=== PATIENT | female | born 1985 | race Hispanic/Latino ===

== ENCOUNTER 2018-02-15 09:37 | Emergency (ER) | payer OTHER ==
[2018-02-15 09:46] VITALS: BP 106/68; PULSE 89; RESP 18; TEMP 98.4; O2SAT 100
[2018-02-15 10:58] LABS: BASO # 0.1 K/uL (0.0-0.2); BASO % 1.2 % (0.0-2.0); EOS # 0.1 K/uL (0.0-0.7); EOS % 1.1 % (0.0-4.0); HEMOGLOBIN 13.9 g/dL (12.0-16.0); LYMPH # 2.2 K/uL (1.0-4.3); LYMPH % 34.4 % (20.0-40.0); MEAN CELL VOLUME 88.7 fl (81.0-99.0); MEAN CORPUSCULAR HEMOGLOBIN 30.2 pg (27.0-31.0); MEAN CORPUSCULAR HGB CONC 34.1 g/dL (33.0-37.0); MEAN PLATELET VOLUME 7.8 fl (7.2-11.7); MONO # 0.4 K/uL (0.0-0.8); MONO % 6.2 % (0.0-10.0); NEUT # 3.7 K/uL (1.8-7.0); NEUT % 57.1 % (50.0-75.0); NRBC % 0.1 % (0.0-0.0); RBC 4.59 Mil/uL (3.80-5.20); RED CELL DISTRIBUTION WIDTH 12.7 % (11.5-14.5); WHITE BLOOD COUNT 6.5 K/uL (4.8-10.8)
[2018-02-15 11:13] LABS: ALB/GLOB RATIO 1.4 (1.0-2.1); ALBUMIN 4.3 g/dL (3.5-5.0); ALT/SGPT 15 U/L (9-52); AST/SGOT 16 U/L (14-36); BLOOD UREA NITROGEN 12 mg/dl (7-17); CALCIUM 9.1 mg/dL (8.4-10.2); GFR AFRICAN-AMERICAN > 60; GFR NON-AFRICAN AMERICAN > 60
--- NOTE | 2018-02-15 11:34 | ED PDOC ---
HPI: Chest Pain Time Seen by Provider: 02/15/18 09:45 Chief Complaint (Nursing): Chest Pain Chief Complaint (Provider): Chest Pain History Per: Patient History/Exam Limitations: no limitations Onset/Duration Of Symptoms: Days (2) Additional Complaint(s): 32 years old female presents to the ED for evaluation of chest pain onset 2 days. Patient reports she was t [facility] yesterday where blood and thyroid tests workup came out negative. She states she felt 2/10 tightness of chest when she walks, and it persisted today so she came in. Patient denies any cough , fever or vomiting. PMD: Kim Dunn Past Medical History Reviewed: Historical Data, Nursing Documentation, Vital Signs Vital Signs: Last Vital Signs Temp 98.4 F 02/15/18 09:45 Pulse 89 02/15/18 09:45 Resp 18 02/15/18 09:45 BP 106/68 02/15/18 09:45 Pulse Ox 100 02/15/18 12:48 - Medical History PMH: Gastritis - Surgical History Other surgeries: Adenoids - Family History Family History: States: Unknown Family Hx - Social History Current smoker - smoking cessation education provided: No Alcohol: Social Drugs: Denies - Allergies Allergies/Adverse Reactions: Allergies Allergy/AdvReac Type Severity Reaction Status Date / Time Penicillins Allergy RASH Verified 07/31/15 00:00 Sulfa (Sulfonamide Allergy RASH Verified 07/31/15 00:00 Antibiotics) TURNER Risk Score for UA/NSTEMI - TURNER Risk Score Age > 64: NO 3 or more CAD Risk Factors: NO Known CAD (Stenosis greater than 50%): NO Aspirin use in past 7 days: NO Severe Angina: NO EKG ST changes greater than 0.5mm: NO Positive Cardiac Marker: NO TURNER Score: 0 Risk %: 5% Curb-65 Severity Score - CURB-65 Severity Score Confusion: No Bun >19mg/dl (>7mmol/L): No Respiratory Rate greater than/equal to 30: No Systolic BP <90 or Diastolic BP less than/equal 60mmHg: No Age >64: No Curb-65 Score: 0 Percentage 30-day mortality: 0.6% Wells Criteria for PE - Wells Criteria for Pulmonary Embolism Clinical Signs and Symptoms of DVT: No P.E is #1 Diagnosis, or Equally Likely: No Heart Rate >100: No Immobilization at least 3 days;Surgery previous 4 weeks: No Previous, objectively diagnosed PE or DVT: No Total Score: 0 Review of Systems ROS Statement: Except As Marked, All Systems Reviewed And Found Negative Constitutional: Negative for: Fever Cardiovascular: Positive for: Chest Pain (and tightness) Respiratory: Negative for: Cough Gastrointestinal: Negative for: Vomiting Physical Exam - Reviewed Nursing Documentation Reviewed: Yes Vital Signs Reviewed: Yes - Physical Exam Appears: Positive for: Non-toxic, No Acute Distress Head Exam: Positive for: ATRAUMATIC, NORMOCEPHALIC Skin: Positive for: Normal Color, Warm, Dry Eye Exam: Positive for: Normal appearance, EOMI, PERRL ENT: Positive for: Normal ENT Inspection Neck: Positive for: Normal Cardiovascular/Chest: Positive for: Regular Rate, Rhythm. Negative for: Murmur Respiratory: Positive for: Normal Breath Sounds. Negative for: Wheezing, Respiratory Distress Gastrointestinal/Abdominal: Positive for: Normal Exam, Soft Back: Positive for: Normal Inspection, L CVA Tenderness, R CVA Tenderness Extremity: Positive for: Normal ROM. Negative for: Calf Tenderness Neurologic/Psych: Positive for: Alert, Oriented (x3) - Laboratory Results Result Diagrams: 02/15/18 10:54 02/15/18 10:54 - ECG O2 Sat by Pulse Oximetry: 100 (RA) Pulse Ox Interpretation: Normal Medical Decision Making Medical Decision Making: Time: 1011 Initial Plan: chest pain rule out electrolyte abnormality, rule out cardiac etiology, rule out pneumonia --Chest X-Ray 2 Views --CMP --Troponin --CBC --No PE Risk factors 1159 Chest X-Ray FINDINGS: LUNGS: No active pulmonary disease. PLEURA: No significant pleural effusion identified. No pneumothorax apparent. CARDIOVASCULAR: Normal. OSSEOUS STRUCTURES: No significant abnormalities. VISUALIZED UPPER ABDOMEN: Normal. OTHER FINDINGS: None. IMPRESSION: No active disease. No acute/significant interval changes. 1248 Labs reviewed show no significant abnormality. pt feels improved will follow up with outpatient cardiology for holter monitor ----- Scribe Attestation: Documented by Toya Manzanares, acting as a scribe for Sara Gooden MD. Provider Scribe Attestation: All medical record entries made by the Scribe were at my direction and personally dictated by me. I have reviewed the chart and agree that the record accurately reflects my personal performance of the history, physical exam, medical decision making, and the department course for this patient. I have also personally directed, reviewed, and agree with the discharge instructions and disposition. Disposition - Clinical Impression Clinical Impression: Atypical chest pain - Patient ED Disposition Is Patient to be Admitted: No Counseled Patient/Family Regarding: Studies Performed, Diagnosis, Need For Followup - Disposition Referrals: [facility] [Outside] Robbie Kapoor MD [Staff Provider] - Disposition: Routine/Home Disposition Time: 12:00 Condition: IMPROVED Additional Instructions: follow up with the balance staff inspector in 2 days return to the ED with any worsening or concerning symptoms Instructions: Palpitations, Chest Pain That Is Not Caused by the Heart (DC), Palpitations (DC) Forms: [place] ([place]ri[place])
--- NOTE | 2018-02-15 12:01 | RAD ---
Date of service: 02/15/2018 HISTORY: chest pain COMPARISON: 07/31/2015 TECHNIQUE: Chest PA and lateral FINDINGS: LUNGS: No active pulmonary disease. PLEURA: No significant pleural effusion identified. No pneumothorax apparent. CARDIOVASCULAR: Normal. OSSEOUS STRUCTURES: No significant abnormalities. VISUALIZED UPPER ABDOMEN: Normal. OTHER FINDINGS: None. IMPRESSION: No active disease. No acute/significant interval changes.
== END 2018-02-15 13:01 | disposition home or self-care (01) ==
LOC: H.ER 09:37
DX: R07.89 Other chest pain (principal); Z88.0 Allergy status to penicillin

== ENCOUNTER 2018-05-02 18:53 | Emergency (ER) | payer OTHER ==
[2018-05-02 19:26] VITALS: RESP 16
--- NOTE | 2018-05-02 20:45 | ED PDOC ---
HPI: Headache Time Seen by Provider: 05/02/18 19:00 Chief Complaint (Nursing): Headache Chief Complaint (Provider): Headache History Per: Patient History/Exam Limitations: no limitations Onset/Duration Of Symptoms: Days (x1) Current Symptoms Are (Timing): Still Present Additional Complaint(s): Valentina Briggs is a 32 year old female with no past medical history who is presenting to the ED for evaluation of mild headache and discomfort s/p head injury onset last night around 9:30 pm. Patient states that she was sitting on her couch and her dog jumped on her causing her to hit her head on the hard part of the couch. She states that she has had some light sensitivity and took an Advil around 11:30 am today. She denies any dizziness, nausea, or vomiting. andrea higgins. PMD: Dr. Dunn Past Medical History Reviewed: Historical Data, Nursing Documentation, Vital Signs Vital Signs: Last Vital Signs Temp 98.7 F 05/02/18 19:24 Pulse 77 05/02/18 19:24 Resp 16 05/02/18 19:24 BP 125/79 05/02/18 19:24 Pulse Ox 100 05/02/18 19:24 - Medical History PMH: Gastritis - Surgical History Other surgeries: Adenoids removed - Family History Family History: States: Unknown Family Hx - Social History Current smoker - smoking cessation education provided: No Alcohol: Social Drugs: Denies - Allergies Allergies/Adverse Reactions: Allergies Allergy/AdvReac Type Severity Reaction Status Date / Time melon Allergy RASH Verified 05/02/18 19:23 Penicillins Allergy RASH Verified 05/02/18 19:23 Sulfa (Sulfonamide Allergy RASH Verified 05/02/18 19:23 Antibiotics) Review of Systems ROS Statement: Except As Marked, All Systems Reviewed And Found Negative Gastrointestinal: Negative for: Nausea, Vomiting Neurological: Positive for: Headache. Negative for: Dizziness Physical Exam - Reviewed Nursing Documentation Reviewed: Yes Vital Signs Reviewed: Yes - Physical Exam Appears: Positive for: Well, Non-toxic, No Acute Distress Head Exam: Positive for: ATRAUMATIC, NORMAL INSPECTION, NORMOCEPHALIC Skin: Positive for: Normal Color, Warm, DRY Eye Exam: Positive for: EOMI, Normal appearance, PERRL ENT: Positive for: Normal ENT Inspection Neck: Positive for: Normal, Painless ROM Cardiovascular/Chest: Positive for: Regular Rate, Rhythm. Negative for: Murmur Respiratory: Positive for: Normal Breath Sounds. Negative for: Respiratory Distress Gastrointestinal/Abdominal: Positive for: Normal Exam, Soft. Negative for: Tenderness Back: Positive for: Normal Inspection Extremity: Positive for: Normal ROM. Negative for: Deformity, Swelling Lymphatic: Negative for: Other Neurologic/Psych: Positive for: Alert, seafood team member II-XII, Oriented, Gait (stable). Negative for: Motor/Sensory Deficits, Aphasia - ECG O2 Sat by Pulse Oximetry: 100 (RA) Pulse Ox Interpretation: Normal Medical Decision Making Medical Decision Making: Time: 20:30 Impression: Head Injury- closed, mild, occured more than 24 hr ago normal neuro exam pt with stable gait and appears to be in no distress pt appears comfortable Upon provider evaluation, pt comfortable in no distress. this is very low likelihood of intracranial bleeding. more likely concussive symptoms. pt likely suffers from concussive syndrome so need to follow up with your doctor in 1-2 days, and return immediately to the ED with any worsening or concerning symptoms. instructed pt that should avoid sports, screen time and intense reading while still concussive. patient is medically stable, and requires no further treatment in the ED at this time. Patient will be discharged. Counseling was provided and all questions were answered regarding diagnosis and need for follow up with PMD. There is agreement to discharge plan. Return if symptoms persist or worsen. Scribe Attestation: Documented by, Esmer Starr acting as a scribe for Sara Gooden MD. Provider Scribe Attestation: All medical record entries made by the Scribe were at my direction and personally dictated by me. I have reviewed the chart and agree that the record accurately reflects my personal performance of the history, physical exam, medi sal decision making, and the department course for this patient. I have also personally directed, reviewed, and agree with the discharge instructions and disposition. Disposition - Clinical Impression Clinical Impression: Post concussive syndrome - Patient ED Disposition Is Patient to be Admitted: No Counseled Patient/Family Regarding: Studies Performed, Diagnosis, Need For Followup - Disposition Disposition: Routine/Home Disposition Time: 20:45 Condition: IMPROVED Additional Instructions: follow up with your primary doctor tomorrow for reevaluation return to the ED immediately with any worsening symptoms such as vomiting, change in mentation or other concerns Instructions: Postconcussion Syndrome (DC) Forms: [place] (Maori)
[2018-05-02 20:56] VITALS: BP 115/69; PULSE 67; TEMP 98.1
[2018-05-03 04:56] VITALS: O2SAT 100
== END 2018-05-02 20:55 | disposition home or self-care (01) ==
LOC: H.ER 18:53
DX: F07.81 Postconcussional syndrome (principal); Z88.0 Allergy status to penicillin